=== PATIENT | male | born 1950 | race Caucasian/White ===

== ENCOUNTER 2016-06-07 12:10 | Emergency (ER) | payer OTHER ==
[~2016-06-07] VITALS: Ht 170.2 cm; Wt 78.6 kg
[2016-06-07] MEDS ORDERED: PREDNISONE20 MG PO (14:39)
[2016-06-07] MEDS ORDERED: ULTRACET1 TABLET PO (14:39)
[2016-06-07] MEDS ORDERED: MOTRIN600 MG PO (14:39)
[2016-06-07 15:14] VITALS: BP 142/79
== END 2016-06-07 15:15 | disposition home or self-care (01) ==
LOC: EME 12:10
DX: M54.42 Lumbago with sciatica, left side (principal); G89.29 Other chronic pain; R03.0 Elevated blood-pressure reading, without diagnosis of hypertension; Z87.891 Personal history of nicotine dependence; Z59.0 Homelessness
CPT/HCPCS: 99281; 99284; J7512

== ENCOUNTER 2016-06-19 11:08 | Emergency (ER) | payer OTHER ==
[~2016-06-19] VITALS: Ht 170.2 cm; Wt 84.6 kg
[~2016-06-19 11:08] MED LIST: MOTRIN600 MG PO; PREDNISONE20 MG PO; ULTRACET1 TABLET PO
[2016-06-19] MEDS ORDERED: MULTI-VITAMIN1 EAC4 PO (12:04)
[2016-06-19] MEDS ORDERED: LISINOPRIL20 MG PO ×2 (12:06→13:32)
[2016-06-19] MEDS ORDERED: PLAVIX75 MG PO ×2 (12:06→13:32)
[2016-06-19] MEDS ORDERED: SYNTHROID100 MCG PO ×2 (12:06→13:32)
[2016-06-19] MEDS ORDERED: ASPIR-LOW81 MG PO (12:06)
[2016-06-19] MEDS ORDERED: SPIRONOLACTONE25 MG PO (12:06)
[2016-06-19] MEDS ORDERED: LIPITOR40 MG PO ×2 (12:06→13:32)
[2016-06-19] MEDS ORDERED: MELOXICAM15 MG PO ×2 (12:07→13:32)
[2016-06-19] MEDS ORDERED: GORDO-VITE E120 GM TP (12:11)
[2016-06-19] MEDS ORDERED: ADULT LOW DOSE81 M1 PO (13:32)
[2016-06-19] MEDS ORDERED: ALDACTONE25 MG PO (13:32)
[2016-06-19 13:44] VITALS: BP 151/75
== END 2016-06-19 13:46 | disposition home or self-care (01) ==
LOC: EME 11:08
DX: B34.9 Viral infection, unspecified (principal); Z76.0 Encounter for issue of repeat prescription; Z87.891 Personal history of nicotine dependence
CPT/HCPCS: 99281; 99284